=== PATIENT | female | born 1970 | race Hispanic/Latino ===

== ENCOUNTER 2017-02-13 16:19 | Emergency (ER) | payer OTHER ==
[~2017-02-13] VITALS: Ht 162.6 cm; Wt 96.4 kg
[2017-02-13 17:21] LABS: CHLORIDE 105 mEq/L (99-109); POTASSIUM 3.7 mEq/L (3.7-5.4); SODIUM 141 mEq/L (136-147)
[2017-02-13 17:22] LABS: GLUCOSE 90 mg/dL (70-99)
[2017-02-13 17:24] LABS: ANION GAP 11 MEQ/L (2-14)
[2017-02-13 17:26] LABS: GFR ESTIMATE (CALCULATED) > 59 mL/min/
[2017-02-13 17:27] LABS: UREA NITROGEN (BUN) 14 mg/dL (9-23)
[2017-02-13] MEDS ORDERED: NORCO 5/3251 TABLET PO (18:55)
[2017-02-13] MEDS ORDERED: FLEXERIL5 MG PO (18:55)
[2017-02-13 19:00] VITALS: BP 147/93
== END 2017-02-13 19:21 | disposition home or self-care (01) ==
LOC: EME 16:19
PROVIDERS: Physician Assistant
DX: S39.012A Strain of muscle, fascia and tendon of lower back, initial encounter (principal); S30.1XXA Contusion of abdominal wall, initial encounter; M79.604 Pain in right leg; V49.40XA Driver injured in collision with unspecified motor vehicles in traffic accident, initial encounter; Y92.410 Unspecified street and highway as the place of occurrence of the external cause
CPT/HCPCS: 72100; 74177; 80048; J7040